=== PATIENT | female | born 1975 | race Caucasian/White ===

== ENCOUNTER 2018-03-08 21:28 | Emergency (ER) | payer OTHER ==
[~2018-03-08] VITALS: Ht 170.2 cm; Wt 74.8 kg
[2018-03-08] MEDS ORDERED: NORCO 5-325 TA1 EACH PO (22:35)
[2018-03-08] MEDS ORDERED: TOBREX5 ML OPHTHALMIC (22:35)
[2018-03-09 04:33] VITALS: BP 119/80
[2018-03-09] MEDS ORDERED: CELEXA10 MG PO (04:50)
[2018-03-09] MEDS ORDERED: ZYRTEC10 M5 PO (04:50)
== END 2018-03-08 22:40 | disposition home or self-care (01) ==
LOC: ER 21:28
DX: H57.12 Ocular pain, left eye (principal); Z90.5 Acquired absence of kidney; W89.0XXA Exposure to welding light (arc), initial encounter; Y93.89 Activity, other specified; Y92.89 Other specified places as the place of occurrence of the external cause; Y99.8 Other external cause status